=== PATIENT | female | born 1960 | race Caucasian/White ===

== ENCOUNTER 2020-10-07 15:45 | Emergency (ER) | payer MEDICARE ==
[~2020-10-07] VITALS: Ht 165.1 cm; Wt 110.0 kg
--- NOTE | 2020-10-07 16:35 | NUR ---
PT IN BED. A&O 4. STATES SHE "WENT TO [place] SUNDAY. LEFT SHOULDER BROKE NOW TINGLING DOWN TO FINGERS
[2020-10-07] MEDS ORDERED: HYDROcodone/APAP 5/325 TABLET ONE (17:00)
[2020-10-07] MEDS ORDERED: DIAZEPAM 5 MG TABLET ONE (17:00)
[2020-10-07] MEDS ORDERED: PLEASE ENTER ALLERGIES MC SCH (17:00)
[2020-10-07] MEDS ORDERED: HYDROcodone/APAP 5/325 TABLET PO ONE (17:00)
[2020-10-07 17:10] VITALS: BP 145/92
--- NOTE | 2020-10-07 17:13 | NUR ---
PT IN BED. ADMIN PAIN MEDS
[2020-10-07] MEDS ORDERED: DIAZEPAM 5 MG TABLET PO ONE (18:00)
== END 2020-10-07 18:25 | disposition home or self-care (01) ==
LOC: ED 18:00
DX: S42.202A Unspecified fracture of upper end of left humerus, initial encounter for closed fracture (principal); M79.622 Pain in left upper arm; X58.XXXA Exposure to other specified factors, initial encounter; Y93.89 Activity, other specified; Y92.89 Other specified places as the place of occurrence of the external cause; Y99.8 Other external cause status
CPT/HCPCS: 99283